=== PATIENT | female | born 1950 | race Caucasian/White ===

== ENCOUNTER → 2020-01-12 | Outpatient (CLI) | payer MEDICARE, OTHER ==
[~2020-01-12] MED LIST: ALBUTEROL2.5 MG/31 INH; ASA81BEC PO; CARVEDILOL12.5 MG PO; CELEXA20 MG PO; CLARITIN10 MG PO; FISH OIL 1,0001 EAC9 PO; IMDUR 30 MG TAB30 M1 PO; LIPITOR 10 MG10 M1 PO; LISINOPRIL2.5 MG PO; METHOTREXATE 22.5 M1 PO; NEURONTIN800 MG PO; NORCO 10-325 T1 EACH PO; PHENERGAN 25 MG25 M1 PO; PLAQUENIL200 MG PO; PROTONIX40 M1 PO; SINGULAIR 10 MG10 MG PO; TRULICITY0.75 MG/0. SUBQ; UNICOMPLEX M TA1 TA1 PO; VIBERZI75 MG PO; VITAMIN D32000 UNI2 PO; ZANAFLEX4 M1 PO; ZANTAC 150MG T150 M1 PO
== END ==
LOC: SJCVC 10:03
DX: I21.29 ST elevation (STEMI) myocardial infarction involving other sites (principal); R94.31 Abnormal electrocardiogram [ECG] [EKG]; I25.810 Atherosclerosis of coronary artery bypass graft(s) without angina pectoris; I10 Essential (primary) hypertension; E78.00 Pure hypercholesterolemia, unspecified; F32.9 Major depressive disorder, single episode, unspecified; E11.9 Type 2 diabetes mellitus without complications; M19.90 Unspecified osteoarthritis, unspecified site

== ENCOUNTER → 2020-01-17 | Outpatient (CLI) | payer OTHER ==
[~2020-01-17] VITALS: Ht 152.4 cm; Wt 104.3 kg
[2020-01-17 10:20] VITALS: BP 173/70
[2020-01-17 10:20] LABS: HEMATOCRIT 36.1 % (37.0-47.0); MCH 32.9 pg (26.0-34.0); MCHC 33.3 g/dL (28.0-37.0); MCV 98.9 fL (80.0-100.0); RBC 3.65 mil/uL (4.20-5.00); RDW 14.2 % (10.5-14.5); WBC 3.3 thou/uL (4.0-11.0)
[2020-01-17 10:27] LABS: CALCIUM 9.3 mg/dL (8.5-10.1); POTASSIUM 5.3 mmol/L (3.5-5.1)
--- NOTE | 2020-01-17 14:29 | EKG ---
[facility] [place] [address] ELECTROCARDIOGRAM REPORT Name: WILDER HOLLINS Room #: [facility]#: [id number] Admission: 01/17/20 Attend Phys: Isaiah Muñiz MD, Discharge: Date of : 54 Report #: [id number] THIS REPORT FOR: cc: FAM - Family physician unknown FAM - Family physician unknown Abhilash Alicea MD [facility] ~ THIS REPORT FOR: //name// [facility] Test Date: 2020-01-17 Test Time: 10:17:12 Pat Name: WILDER HOLLINS Department: Room: Gender: F Psychological Tests Sales Agent: Milli CASTELLANOS : 1950 Requested By: Isaiah Muñiz Order Number: [id number] MD: Abhilash Alicea Measurements Intervals [place] Rate: 63 P: 59 WA: 201 QRS: 1 QRSD: 93 T: 48 QT: 420 QTc: 430 Interpretive Statements Sinus rhythm Poor R wave progression No previous ECG available for comparison Electronically Signed On 01-17-2020 14:27:50 CDT by Abhilash Alicea [email or web address] <ELECTRONICALLY SIGNED> By: Abhilash Alicea MD, FAC 01/17/20 1427 1017 [id number] Abhilash Alicea MD, [facility] /EPI
--- NOTE | 2020-01-20 10:57 | CATHLAB ---
[facility] Nataliia [place] [address] INVASIVE PROCEDURE REPORT Name: WILDER HOLLINS Room #: REG BRIAN AndersonBrian#: [id number] Admission: 01/17/20 Attend Phys: Isaiah Muñiz MD, Discharge: Date of : 54 Report #: [id number] THIS REPORT FOR: cc: FAM - Family physician unknown FAM - Family physician unknown Isaiah Muñiz MD [facility] ~ APPROVED REPORT Study performed: 01/17/2020 11:57:27 Patient Details Patient Status: Out-Patient Room #: The patient is a 69 year-old female Event Personnel Isaiah Muñiz Syrup Mixer Helper, Adwoa Welsh RTR, CLEAT THROWER Monitor, Margoth Edouard RN RN, Shaggy Hoffman RTR Scrub Procedures Performed Art Access - R femoral artery* Samy Access - R femoral vein Right and Left Heart Cath Lt Vent/Cors/Grafts [id number] RLLVCORCAB 74077 Initial Mod Sed Same Phys/QHP Gr5y [id number] 18443 Mod Sed Same Phys/QHP Ea 994347 Hemostasis w/ Mynx Hemostasis with Manual pressure Renal Bilateral Peripheral Angiography 4962579 CVRENALBIL Indication Dyspnea, Positive stress test Procedure Narrative The Right Groin^ was infiltrated with 1% Lidocaine subcutaneous anesthesia. A PINNACLE 6FR Sheath #[id number] sheath was inserted into the RFA. Coronary angiography was performed using coronary diagnostic catheters. The right coronary system was accessed and visualized with a JR4 catheter. The left coronary system was accessed and visualized with a JL4 catheter. The left ventricle was accessed and visualized with a Pigtail catheter. Left ventricular/Aortic Valve gradient assessed via catheter pullback. Left ventriculogram was performed in 30 degree projection. Closure device was deployed with a 6 Fr MYNXGRIP 6/7F #[id number]. Hemostasis was obtained with manual pressure following sheath removal without any complications. The patient tolerated the procedure well and there were no complications associated with the procedure. There was no hematoma. [facility] [address] [place] [address] INVASIVE PROCEDURE REPORT Name: REBECCA HOLLINSMaycol Lobo Room #: [facility]#: [id number] Admission: 01/17/20 Attend Phys: Isaiah Muñiz, Discharge: Date of : 54 Report #: [id number] Intraoperative Conscious Sedation Sedation start time: 12:23 Case end Time: 13:11 Fentanyl 100 mcg Visipaque 20ml was used in addition to the Omnipaque 15ml for a total of 35ml. Fluoro Time: 3.51 minutes Dose: DAP 4294.30 cGycm2 487 mGy Contrast Type and Amount: Omnipaque 15ml Hemodynamics The right atrial mean pressure is 19 mmHg. The right ventricular pressure is 56/13 mmHg. The pulmonary artery pressure is 53/27 mmHg with a mean of 39 mmHg. The mean pulmonary capillary wedge pressure is 18 mmHg. The aortic pressure is 180/68 mmHg with a mean of 106 mmHg. The left ventricular pressure is 187/11 mmHg with a mean of mmHg. The left ventricular end diastolic pressure is 25 mmHg. The cardiac output using thermo method is 3.80 L/min. The cardiac index using thermo method is 1.92 L/min/m2. Conclusion #1. Successful right heart catheterization see above hemodynamics. [place]-Dionte catheter with cardiac output by thermodilution. #2 normal left ventricular size and systolic function lower limits of normal EF 50% #3 left main is large mildly calcified widely patent giving rise to LAD and circumflex #4 LAD proximal calcifications in long segment of proximal stent with mild in-stent restenosis. Moderately diseased distal vessel extends around the apex. Attenuated no focal lesion but diffuse moderate to severe distal disease. Treat medically. #5 circumflex OM proximal calcification with mild disease #6 dominant right coronary with proximal calcification distal diffuse disease giving rise to PDA and ANN MARIE diffusely disease. #6 selective injection of bilateral renal arteries are calcified but only mild irregularity the right has an eccentric lesion of 30 to 40% ostial. Recommendations and plan: Continue aggressive risk factor modification. Aggressive diuresis. Moderate three-vessel coronary disease would treat this medically. Will follow up with Dr. Muñoz [address] [address] INVASIVE PROCEDURE REPORT Name: PRISCILLADAJA PENATENZIN Lobo Room #: ARCADIO Sims#: [id number] Admission: 01/17/20 Attend Phys: Isaiah Muñiz, Discharge: Date of : 54 Report #: [id number] seen in [facility]. Aggressive diuresis and fluid restriction is recommended <ELECTRONICALLY SIGNED> By: Isaiah Muñiz MD, FACC 01/20/20 1056 55 105 Isaiah Muñiz MD, FACC /INF
== END ==
LOC: CATH
PROVIDERS: Internal Medicine Cardiovascular Disease
DX: R94.39 Abnormal result of other cardiovascular function study (principal); R06.00 Dyspnea, unspecified; I25.10 Atherosclerotic heart disease of native coronary artery without angina pectoris; T82.855A Stenosis of coronary artery stent, initial encounter; I70.1 Atherosclerosis of renal artery; R07.9 Chest pain, unspecified; I10 Essential (primary) hypertension; E10.9 Type 1 diabetes mellitus without complications; F32.9 Major depressive disorder, single episode, unspecified; I25.2 Old myocardial infarction; D64.9 Anemia, unspecified; M19.90 Unspecified osteoarthritis, unspecified site; Z98.890 Other specified postprocedural states; Z79.899 Other long term (current) drug therapy; Z86.73 Personal history of transient ischemic attack (TIA), and cerebral infarction without residual deficits; Z95.1 Presence of aortocoronary bypass graft; Z79.4 Long term (current) use of insulin